=== PATIENT | male | born 1980 | race Caucasian/White ===

== ENCOUNTER 2016-06-02 12:04 | Emergency (ER) | payer SELFPAY ==
[~2016-06-02] VITALS: Ht 193 cm; Wt 130.0 kg
[~2016-06-02 12:04] MED LIST: ACET-1256 PO; AMBESOL TOP; IBUP-1050 PO; OXYC1TAB3 PO
[2016-06-02 12:16] VITALS: TEMP 36.9; Ht 193 cm; Wt 130.0 kg
--- NOTE | 2016-06-02 13:28 | DIAGNOSTIC IMAGING REPORT ---
SACRUM/COCCYX 3 VIEWS HISTORY: Sacral pain. fall one week ago COMPARISON: None. FINDINGS: There is no fracture or dislocation. Soft tissues are unremarkable. No radiopaque foreign bodies. IMPRESSION: No fractures within the sacrum/coccyx. Electronically signed by: Maciel Singleton M.D. 06/02/2016 1:27 PM Dictated Date/Time: 06/02/2016 1:20 PM
--- NOTE | 2016-06-02 13:36 | EMERGENCY ROOM VISIT NOTE ---
ED Visit Note First contact with patient: 12:20 CHIEF COMPLAINT: Low back pain 1 week HISTORY OF PRESENT ILLNESS: Patient is a 35-year-old white male who presents emergency department for ongoing low back/tailbone pain after a fall one week ago. He slipped on the steps, landing on his buttocks. He complains of pain low in his low back and in his sacral/coccyx region. Pain is worse with sitting or with position changes. He tried to rest over the last week, but has not taken any medications for his pain which he presently rates an 8/10. He denies any pain higher up in the back. There is no radiation of the pain into the buttocks or the legs. He denies any numbness, tingling or weakness into the lower extremities. No bowel or bladder incontinence. No prior history of back problems. REVIEW OF SYSTEMS: Review of systems as per HPI. All other systems reviewed were negative. At least 6 systems reviewed. PMH: Electronic medical records are reviewed and summarized as above/below. See Problem List. SOCIAL HISTORY: Patient lives at home. Employed. Smoker. PHYSICAL EXAM: Vital Signs: Reviewed Nurse's notes. CONSTITUTIONAL: Patient is a well-appearing 35-year-old white male who is awake and alert and in no acute distress. There is slight discomfort with position changes. CARDIOVASCULAR: Regular rate and rhythm, with normal S1 and S2, no murmur or gallop or rub is heard. No carotid bruits auscultated. No JVD. Peripheral pulses easily palpable. RESPIRATORY: Breath sounds equal and clear to auscultation without wheezes, rales, or rhonchi heard. Full and equal chest expansion without accessory muscle use or retractions. ABDOMEN: Bowel sounds are present. Abdomen is soft, nontender and nondistended. INTEGUMENTARY: No lesions or rash, normal skin turgor. LYMPH: No lymphadenopathy. SPINE: Examination of the patient's back does not demonstrate any ecchymosis, abrasions or outward signs of trauma. No erythema, increased warmth or induration. Patient has midline discomfort to palpation over the low lumbar spine and sacrum. No pain over the coccyx. There is no pain over the SI joint or the sciatic notch. He has increased pain with range of motion including rotation and flexion. EXTREMITIES: Leg lengths are symmetrical. Negative logroll bilaterally. Normal strength including dorsi-flexion and plantar flexion of the great toes and ankles and flexion and extension of the knees and flexion of the hips. Negative bilateral straight leg raise testing. Lower extremity DTRs are equal and symmetrical bilaterally. Distal pulses are easily palpable. Sensation light touch is intact over the lower extremities bilaterally. EMERGENCY DEPARTMENT COURSE: Sacrococcygeal x-rays were obtained and were negative for fracture. Conservative care measures were discussed. The patient was encouraged to use heat and ibuprofen. He was given a small prescription for Flexeril. Differential diagnoses including compression fracture, lumbar contusion, coccygeal fracture, acute compression syndrome, cauda equina, diskitis, epidural abscess, hematoma or neurovascular compromise. SACRUM/COCCYX 3 VIEWS HISTORY: Sacral pain. fall one week ago COMPARISON: None. FINDINGS: There is no fracture or dislocation. Soft tissues are unremarkable. No radiopaque foreign bodies. IMPRESSION: No fractures within the sacrum/coccyx. Problem List Medical Problems: (1) Abdominal pain Status: Resolved (2) Benign hypertension Status: Chronic (3) Dental caries Status: Resolved (4) Tooth ache Status: Resolved Surgical Problems: (1) History of cholecystectomy Status: Resolved Current/Historical Medications Scheduled PRN Cyclobenzaprine Hcl (Flexeril), 10 MG PO TID PRN for Muscle Spasms Allergies Coded Allergies: No Known Allergies (Unverified , 08/10/14) Vital Signs Date Time Temp Pulse Resp B/P Pulse Ox O2 Delivery O2 Flow Rate FiO2 06/02/16 14:07 82 20 154/89 100 06/02/16 12:16 36.9 98 16 170/96 99 Departure Information Impression Primary Impression: Back contusion Prescriptions Cyclobenzaprine Hcl (FLEXERIL) 10 Mg Tab 10 MG PO TID Y for Muscle Spasms, #30 TAB Prov: Christei Quintana PA 06/02/16 Referrals Todd Ennis M.D. (PCP) Patient Instructions My [facility] Additional Instructions Cyclobenzaprine (Flexeril) 10 mg: Take 1 pills 3 times daily as needed for muscle spasms.. Avoid alcohol, operating machinery or dangerous equipment, working on ladders or roofs, DRIVING, or situations where being under the influence may be dangerous. Ibuprofen(Motrin, Advil) may be used for fever or pain. Use 600mg every six hours as needed. Take with food. Avoid using more than 2400mg in a 24 hour period. Do not use 2400mg per day for more than three consecutive days without physician direction. Prolonged inappropriate use can lead to stomach upset or ulcers. This medication can be taken if you need to drive, work, or perform activities which may be dangerous when taking narcotic pain medication. (AND/OR) Acetaminophen(Tylenol) may be used for fever or pain. Use 1000mg every six hours as needed. Avoid using more than 3000mg in a 24 hour period. This medication can be taken if you need to drive, work, or perform activities which may be dangerous when taking narcotic pain medication. Rest and avoid heavy lifting until your symptoms resolve and then gradually return to full activity. A good rule of thumb is if it hurts your back to perform a certain activity, then it should be avoided until you are healthy again. A heating pad, warm compresses, or a hot shower may help with tight muscles and can be done several times a day as needed. Continue current medications. Return to the ER immediately for any numbness, tingling, severe pain, loss of control of your bowels or bladder, inability to walk, or as needed. Follow up with your primary care physician within 3-5 days for a recheck of your current condition. Problem Qualifiers Primary Impression: Back contusion Encounter type: initial encounter Laterality: unspecified laterality Qualified Codes: S20.229A - Contusion of unspecified back wall of thorax, initial encounter
[2016-06-02] MEDS ORDERED: CYCL10TA6 PO (13:52)
[2016-06-02 14:07] VITALS: BP 154/89; PULSE 82; O2SAT 100
== END 2016-06-02 13:55 | disposition home or self-care (01) ==
LOC: C.EDB 12:05 → C.EDD 13:55
DX: S20.229A Contusion of unspecified back wall of thorax, initial encounter (principal); W10.9XXA Fall (on) (from) unspecified stairs and steps, initial encounter; F17.200 Nicotine dependence, unspecified, uncomplicated; I10 Essential (primary) hypertension; Z90.49 Acquired absence of other specified parts of digestive tract

== ENCOUNTER 2016-12-20 14:39 | Emergency (ER) | payer SELFPAY ==
[~2016-12-20] VITALS: Ht 193 cm; Wt 132.0 kg
[2016-12-20 14:41] VITALS: TEMP 36.9; Ht 193 cm; Wt 132.0 kg
[2016-12-20] MEDS ORDERED: ACET-1256 PO (15:01)
[2016-12-20] MEDS ORDERED: IBUP-1050 PO (15:01)
[2016-12-20] MEDS ORDERED: PENI500T2 PO (15:15)
--- NOTE | 2016-12-20 15:15 | EMERGENCY ROOM VISIT NOTE ---
ED Visit Note First contact with patient: 14:43 CHIEF COMPLAINT: Left upper dental pain 3 days HISTORY OF PRESENT ILLNESS: Patient is a 36-year-old white male who presents the emergency department for evaluation of left upper dental pain. He notes pain coming from a fractured the left upper tooth. He broke it over a year ago. He has had increased pain over the last couple of days, and has noticed a small area of swelling along the gumline that he believes is an abscess. He notes pain with chewing. His discomfort is alleviated slightly with Tylenol and ibuprofen. He has been renting a saltwater gargles. He has contacted a dentist, but thought that he would benefit from antibiotics prior to being seen by the dentist. He denies any blood, pus or foul tasting fluid in his mouth. Denies facial swelling or fever. REVIEW OF SYSTEMS: Review of systems as per HPI. All other systems reviewed were negative. At least 6 systems reviewed. PMH: Electronic medical records are reviewed and summarized as above/below. See Problem List. SOCIAL HISTORY: Patient lives at home. Smoker. PHYSICAL EXAM: Vital Signs: Reviewed Nurse's notes. CONSTITUTIONAL: Patient is a well-appearing 36-year-old white male who is awake and alert and in no acute distress. Vital signs are stable. EARS: Tympanic membranes intact, not inflamed, have normal contour. External canals clear. MOUTH: Overall the patient has fair dentition. The left upper bicuspid in question is grossly fractured, carious to the gumline, with a abscess with pointing noted along the gumline. Mucous membranes moist, no lesions, tongue and gums appear normal. THROAT: No pharyngeal injection, exudates, or tonsillar hypertrophy. Airway is patent. No trismus noted. FACE: No facial swelling is appreciated. No cellulitic changes. NECK: No lymphadenopathy. . ED course: The patient was seen and evaluated as above. He has a small abscess along the gumline that is pointing. Bedside I&D was discussed with the patient and he was agreeable. The area was anesthetized with Cetacaine spray, and incised with 11 blade. Purulent material was expressed. The patient rinsed his mouth with sterile saline solution. He will be placed on Pen-Vee K. He was encouraged to continue saltwater gargles, and [id number] medications for discomfort. Follow-up with the dentist for definitive care and management. The patient does not have any evidence for facial cellulitis, no evidence for Daryl's angina at this time. Medication reconciliation: I attest that I have personally reviewed the patient' s current medication list. Blood pressure screening : Patient was found to have normal blood pressure on screening and does not require follow-up. Problem List Medical Problems: (1) Abdominal pain Status: Resolved (2) Back contusion Status: Resolved (3) Benign hypertension Status: Chronic (4) Dental caries Status: Resolved (5) Tooth ache Status: Resolved Surgical Problems: (1) History of cholecystectomy Status: Resolved Current/Historical Medications Scheduled Ibuprofen (Advil), 400 MG PO PRN UD Penicillin V Potassium (Veetids), 500 MG PO QID Scheduled PRN Acetaminophen (Tylenol), 1,000 MG PO Q6 PRN for Pain Allergies Coded Allergies: No Known Allergies (Unverified , 08/10/14) Vital Signs Date Time Temp Pulse Resp B/P (MAP) Pulse Ox O2 Delivery O2 Flow Rate FiO2 12/20/16 15:46 86 20 137/75 96 12/20/16 14:41 36.9 91 18 124/81 98 Room Air Medications Administered Medications (Trade) Dose Ordered Sig/Vito Route Start Time Stop Time Status Last Admin Dose Admin Penicillin V Potassium (Veetids Tab) 500 mg ONE ONCE PO 12/20/16 15:30 12/20/16 15:34 DC 12/20/16 15:43 500 MG Departure Information Impression Primary Impression: Periapical abscess Prescriptions Penicillin V Potassium (VEETIDS) 500 Mg Tab 500 MG PO QID, #40 TAB Prov: Christie Quintana PA 12/20/16 Referrals Todd Ennis M.D. (PCP) Patient Instructions My [facility] Additional Instructions Penicillin 500mg: Take one pill four times daily for 10 days for your dental infection. All antibiotics can cause diarrhea. If this occurs and you feel worse or it does not resolve in 1-2 days follow up with your doctor or return to the Emergency Department as this could be signs of serious underlying problems. Any medication can cause an allergic reaction, stop the pills immediately and return to the ER for rash, hives, breathing difficulties, or swelling. Ibuprofen(Motrin, Advil) may be used for fever or pain. Use 600mg every six hours as needed. Take with food. Avoid using more than 2400mg in a 24 hour period. Do not use 2400mg per day for more than three consecutive days without physician direction. Prolonged inappropriate use can lead to stomach upset or ulcers. (AND/OR) Acetaminophen(Tylenol) may be used for fever or pain. Use 1000mg every six hours as needed. Avoid using more than 4000mg in a 24 hour period. Saltwater gargles after meals and before bedtime. Soft foods. Orajel/Anbesol/clove oil as needed for discomfort. Followup with your dentist for definitive management. You may also follow up with your primary care physician for pain/care management until you can be seen by your dentist.
[2016-12-20] MEDS ORDERED: CANNULA ONE ×2 (15:19)
[2016-12-20] MEDS ORDERED: PENICILLIN V POTASSIUM 250 MG TAB PO ONE (15:30)
[2016-12-20 15:46] VITALS: BP 137/75; PULSE 86; O2SAT 96
== END 2016-12-20 15:48 | disposition home or self-care (01) ==
LOC: C.EDB 14:40 → C.EDD 15:48
DX: K04.7 Periapical abscess without sinus (principal); F17.200 Nicotine dependence, unspecified, uncomplicated; I10 Essential (primary) hypertension